=== PATIENT | male | born 1965 | race Hispanic/Latino ===

== ENCOUNTER 2017-12-22 14:33 | Emergency (ER) | payer BC ==
[~2017-12-22] VITALS: Ht 172.7 cm; Wt 94.2 kg
[~2017-12-22 14:33] MED LIST: ENALAPRIL5 MG PO
[2017-12-22] MEDS ORDERED: TESSALON PER100 MG PO (14:49)
[2017-12-22] MEDS ORDERED: ZITHROMAX250 MG PO (14:49)
[2017-12-22 15:01] VITALS: BP 136/87
== END 2017-12-22 15:01 | disposition home or self-care (01) | DRG 153 ==
LOC: ED 14:33
DX: J02.9 Acute pharyngitis, unspecified (principal); R05 Cough

== ENCOUNTER 2018-07-27 13:56 | Emergency (ER) | payer BC ==
[~2018-07-27] VITALS: Ht 172.7 cm; Wt 80.0 kg
[~2018-07-27 13:56] MED LIST changes: +TESSALON PER100 MG PO; +ZITHROMAX250 MG PO
[2018-07-27 15:35] VITALS: BP 131/87
== END 2018-07-27 15:35 | disposition home or self-care (01) | DRG 950 ==
LOC: ED 13:56
DX: S01.21XD Laceration without foreign body of nose, subsequent encounter (principal); S01.111D Laceration without foreign body of right eyelid and periocular area, subsequent encounter